=== PATIENT | female | born 1990 | race Caucasian/White ===

== ENCOUNTER 2020-09-30 21:32 | Emergency (ER) | payer OTHER ==
[~2020-09-30] VITALS: Ht 175.3 cm; Wt 85.1 kg
[~2020-09-30 21:32] MED LIST: HYDR-2155 PO; ONDA4TAB10 SL
[2020-09-30] MEDS ORDERED: ONDANSETRON PF 4 MG/2 ML VIAL. IVP ONE (22:00)
[2020-09-30] MEDS ORDERED: FAMOTIDINE 20 MG/2 ML VIAL IVP ONE (22:00)
[2020-09-30] MEDS ORDERED: IV RINGERS SOLUTION,LACTATED 1,000 ML IV SCH (22:00)
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
[2020-09-30 22:20] LABS: BACTERIA,URINE 0 /HPF (0-FEW); BILIRUBIN,URINE NEG (NEG); CLARITY,URINE CLEAR; COLOR,URINE YELLOW; GLUCOSE,URINE NEG (NEG); NITRITE,URINE NEG (NEG); RBC,URINE OCC /HPF (0-2); SQUAMOUS EPITHELIAL CELL,UR FEW /LPF; WBC,URINE OCC /HPF (0-4)
[2020-09-30 22:26] LABS: BARBITURATES NEG (NEG); BENZODIAZEPINES NEG (NEG); CANNABINOIDS NEG (NEG); COCAINE NEG (NEG); METHADONE NEG (NEG); OPIATES NEG (NEG); PHENCYCLIDINE NEG (NEG)
[2020-09-30 22:33] LABS: AMPHETAMINE/METHAMPHETAMINE NEG (NEG)
[2020-09-30 22:49] LABS: BASO % 0 % (0-3); EOS # 0.2 x10^3/uL (0.0-0.7); EOS % 2 % (0-3); HEMATOCRIT 38.7 % (36.0-47.0); HEMOGLOBIN 13.4 g/dL (12.0-15.5); LYMPH # 3.7 x10^3/uL (1.0-4.8); LYMPH % 35 % (24-48); MEAN CORPUSCULAR HEMOGLOBIN 31 pg (25-35); MEAN CORPUSCULAR HGB CONC 35 g/dL (31-37); MEAN CORPUSCULAR VOLUME 90 fL (79-100); MONO # 0.7 x10^3/uL (0.0-1.1); MONO % 6 % (0-9); NEUT # 5.8 x10^3uL (1.8-7.7); NEUT % 56 % (31-73); PLATELET COUNT 287 x10^3/uL (140-400); RED BLOOD COUNT 4.29 x10^6/uL (3.50-5.40); RED CELL DISTRIBUTION WIDTH 12.6 % (11.5-14.5); WHITE BLOOD COUNT 10.4 x10^3/uL (4.0-11.0)
[2020-09-30 22:55] LABS: CALCIUM 9.4 mg/dL (8.5-10.1); CREATININE 0.7 mg/dL (0.6-1.0); GFR 98.3; POTASSIUM 3.8 mmol/L (3.5-5.1)
[2020-09-30 23:01] LABS: DIRECT BILIRUBIN 0.2 mg/dL (0.0-0.2); TOTAL BILIRUBIN 0.7 mg/dL (0.2-1.0); TOTAL PROTEIN 7.3 g/dL (6.4-8.2)
[2020-09-30] MEDS ORDERED: CONTRAST GIVEN. MC PRN (23:30)
[2020-09-30] MEDS ORDERED: IOHEXOL 240 MG/ML 50ML VIAL. PO ONE (23:30)
[2020-09-30] MEDS ORDERED: KETOROLAC 30 MG/ML VIAL. IVP ONE (23:30)
[2020-09-30] MEDS ORDERED: IOHEXOL 300 MG/ML 75 ML VIAL. IV ONE (23:30)
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
[2020-10-01 01:30] VITALS: BP 126/57
[2020-10-02 20:13] LABS: CHLAMYDIA PROBE Negative (Negative)
== END 2020-10-01 01:34 | disposition home or self-care (01) ==
LOC: ER 21:32
DX: K59.00 Constipation, unspecified (principal); N83.209 Unspecified ovarian cyst, unspecified side; M47.897 Other spondylosis, lumbosacral region; N93.9 Abnormal uterine and vaginal bleeding, unspecified; K58.9 Irritable bowel syndrome, unspecified; F17.200 Nicotine dependence, unspecified, uncomplicated; Z87.442 Personal history of urinary calculi
CPT/HCPCS: 36415; 74177; 80048; 80076; 80307; 81001; 81025; 82150; 82550; 83690; 84484; 85025; 85610; 85730; 87491; 87591; 96361; 96374; 96375; 99285; J1885; J2405; J3490; J7120; Q9966; Q9967

== ENCOUNTER 2020-11-12 04:05 | Emergency (ER) | payer OTHER ==
[~2020-11-12] VITALS: Ht 175.3 cm; Wt 85.0 kg
[2020-11-12 04:10] VITALS: BP 161/85
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
[2020-11-12] MEDS ORDERED: MORPHINE SULFATE 10 MG/ML SYRINGE. SQ ONE (05:15)
[2020-11-12] MEDS ORDERED: ORPHENADRINE CITRATE 60 MG/2 ML VIAL. IM ONE (05:15)
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
[2020-11-12] MEDS ORDERED: HYDR-1179 PO (06:00)
[2020-11-12] MEDS ORDERED: CYCL-331 PO (06:00)
[2020-11-12 06:26] LABS: BILIRUBIN,URINE NEG (NEG); CLARITY,URINE HAZY; COLOR,URINE YELLOW; GLUCOSE,URINE NEG (NEG)
[2020-11-12 06:27] LABS: BACTERIA,URINE FEW /HPF (0-FEW); NITRITE,URINE NEG (NEG); SQUAMOUS EPITHELIAL CELL,UR FEW /LPF
[2020-11-12 06:28] LABS: HYALINE CASTS, URINE FEW /HPF
== END 2020-11-12 06:35 | disposition home or self-care (01) ==
LOC: ER 04:05
DX: S63.8X2A Sprain of other part of left wrist and hand, initial encounter (principal); Z87.442 Personal history of urinary calculi; F17.200 Nicotine dependence, unspecified, uncomplicated; Z90.710 Acquired absence of both cervix and uterus; Z98.890 Other specified postprocedural states; Y08.89XA Assault by other specified means, initial encounter; Y93.89 Activity, other specified; Y92.89 Other specified places as the place of occurrence of the external cause; Y99.8 Other external cause status
CPT/HCPCS: 72100; 72131; 81001; 81025; 87086; 96372; 99285; J2270; J2360

== ENCOUNTER 2021-07-20 18:23 | Emergency (ER) | payer OTHER ==
[~2021-07-20] VITALS: Ht 175.3 cm; Wt 81.0 kg
[~2021-07-20 18:23] MED LIST changes: +CYCL10TA19 PO; +HYDR-1179 PO
[2021-07-20 18:55] VITALS: BP 113/77
[2021-07-20] MEDS ORDERED: IBUPROFEN 600 MG TABLET. PO ONE (19:15)
[2021-07-20] MEDS ORDERED: DEXAMETHASONE SOD PHOS 10 MG/ML VIAL. IM ONE (19:15)
[2021-07-20] MEDS ORDERED: [UNRECOGNIZED DRUG - CODE] PO (19:44)
--- NOTE | 2021-07-20 19:44 | PHYS DOC ---
Past History Past Medical History: Constipation, IBS, Kidney Stones, Ovarian Cyst, Urolithias, Other Past Surgical History: Hysterectomy, Tonsillectomy Additional Past Surgical Histo: uteran fibroid removal, L5-S1 fusion, sinus x2 Smoking: Less than 1pk/day Alcohol Use: Rarely Drug Use: None General Adult EDM: Chief Complaint: FOOT INJURY PAIN HPI: HPI: Patient is a [age] year old [sex] who presents with [] Review of Systems: Review of Systems: Constitutional: Denies fever or chills Eyes: Denies redness or eye pain HENT: Denies nasal congestion or sore throat Respiratory: Denies cough or shortness of breath Cardiovascular: Denies chest pain or palpitations GI: Denies abdominal pain, nausea, or vomiting : Denies dysuria or hematuria Musculoskeletal: Denies back pain or joint pain Integument: Denies rash or skin lesions Neurologic: Denies headache, focal weakness or sensory changes Complete systems were reviewed and found to be within normal limits, except as documented in this note. Current Medications: Current Meds: Current Medications Medications (Trade) Dose Ordered Sig/Mateo Start Time Stop Time Status Last Admin Dose Admin Dexamethasone Sodium Phosphate (Decadron) 10 mg 1X ONCE 07/20/21 19:15 07/20/21 19:16 UNV 07/20/21 19:30 10 MG Ibuprofen (Motrin) 600 mg 1X ONCE 07/20/21 19:15 07/20/21 19:16 UNV 07/20/21 19:30 600 MG Allergies: Allergies: Allergies Coded Allergies Type Severity Reaction Last Updated Verified No Known Drug Allergies 11/12/20 No Physical Exam: PE: Constitutional: Well developed, well nourished, no acute distress, non-toxic appearance HENT: Normocephalic, atraumatic Eyes: PERRL, EOMI, conjunctiva normal, no discharge Neck: Normal range of motion, no tenderness, supple Lungs & Thorax: No respiratory distress, equal chest rise and fall Abdomen: Soft, no tenderness Skin: Warm, dry, no erythema, no rash Back: No tenderness, no CVA tenderness Extremities: No tenderness, ROM intact, no edema Neurologic: Alert and oriented X 3, normal motor function, normal sensory function, no focal deficits noted Psychologic: Affect normal, judgment normal EKG: EKG: [] Radiology/Procedures: Radiology/Procedures: [] Heart Score: C/O Chest Pain: N/A Course & Med Decision Making: Course & Med Decision Making Pertinent Imaging studies reviewed. (See chart for details) Patient stable for discharge with outpatient follow-up with PCP/podiatry. Podiatry referral provided. Discussed findings and plan with patient, who acknowledges understanding and agreement. Terrie Disclaimer: Terrie Disclaimer: This electronic medical record was generated, in whole or in part, using a voice recognition dictation system. Departure Departure: Impression: Primary Impression: Foot pain, left Disposition: HOME / SELF CARE / HOMELESS Condition: STABLE Referrals: PCP,FRANCISCA (PCP) JOSHUA KAHN DPM Patient Instructions: Crutch Use, [id number], Elastic Bandage and RICE, Plantar Fasciitis Scripts Naproxen (EC-Naproxen) 375 Mg Tablet. 375 MG PO TID PRN PRN for PAIN, #30 TAB Prov: LISA PIEDRA DO 07/20/21 LISA PIEDRA DO Jul 20, 2021 19:44
--- NOTE | 2021-07-20 20:14 | RAD ---
XR FOOT_LEFT 3 VIEWS DATE: 07/20/2021 7:19 PM INDICATION: pain to plantar aspect COMPARISON: None. FINDINGS: Bones: There is no evidence of acute fracture or dislocation. Joints: The joint spaces are normal. Miscellaneous: None. IMPRESSION: No evidence of acute fracture. Electronically signed by: Daniel Soler MD (07/20/2021 8:11 PM) MYNOR
== END 2021-07-20 19:50 | disposition home or self-care (01) ==
LOC: ER 18:23
DX: M79.672 Pain in left foot (principal); K58.9 Irritable bowel syndrome, unspecified; Z87.442 Personal history of urinary calculi; F17.200 Nicotine dependence, unspecified, uncomplicated
CPT/HCPCS: 73630; 96372; 99283; J1100; 96368